=== PATIENT | male | born 1975 | race Caucasian/White ===

== ENCOUNTER 2023-06-06 11:59 | Outpatient (CLI) | payer OTHER, SELFPAY ==
[2023-06-06 18:01] LABS: Chlamydia DNA Amplified* NOT DETECTED (No Detected); GC DNA Amplified* NOT DETECTED (No Detected)
== END 2023-06-06 12:00 | disposition home or self-care (01) ==
LOC: NFLDUCREF 11:59
PROVIDERS: PCP Family Medicine; Visit Provider Family Medicine
DX: R30.0 Dysuria (principal)
CPT/HCPCS: 87491; 87591